=== PATIENT | male | born 1970 | race Hispanic/Latino ===

== ENCOUNTER 2017-08-13 07:22 | Emergency (ER) | payer SELFPAY ==
[2017-08-13] MEDS ORDERED: Ibuprofen 800 MG TAB ONE (08:25)
== END 2017-08-13 08:30 | disposition home or self-care (01) ==
LOC: ERS 07:22
DX: M54.6 Pain in thoracic spine (principal); S29.012A Strain of muscle and tendon of back wall of thorax, initial encounter; I25.2 Old myocardial infarction; E11.9 Type 2 diabetes mellitus without complications; I10 Essential (primary) hypertension; F41.9 Anxiety disorder, unspecified; F17.210 Nicotine dependence, cigarettes, uncomplicated; Z79.84 Long term (current) use of oral hypoglycemic drugs; Z79.82 Long term (current) use of aspirin; Z79.899 Other long term (current) drug therapy; X50.9XXA Other and unspecified overexertion or strenuous movements or postures, initial encounter
CPT/HCPCS: 36416; 93005

== ENCOUNTER 2017-08-24 14:58 | Emergency (ER) | payer SELFPAY ==
[2017-08-24] MEDS ORDERED: Ketorolac Tromethamine 30 MG/ML VIAL ONE (15:52)
--- NOTE | 2017-08-24 16:30 | RAD ---
3 VIEWS CERVICAL SPINE: Date: 08/24/17 COMPARISON: None. HISTORY: Neck pain for 2 weeks. FINDINGS: Three views of cervical spine show normal height and alignment of the vertebral bodies and interverte bral discs without fracture or subluxation. Small osteophytes are seen throughout the cervical spine. No prevertebral soft tissue swelling is seen. IMPRESSION: Mild degenerative changes of the cervical spine without acute osseous abnormality. POS: [facility]
== END 2017-08-24 17:04 | disposition home or self-care (01) ==
LOC: ERS 14:58
DX: L03.011 Cellulitis of right finger (principal); M54.2 Cervicalgia; I25.2 Old myocardial infarction; E11.9 Type 2 diabetes mellitus without complications; I10 Essential (primary) hypertension; F17.210 Nicotine dependence, cigarettes, uncomplicated; F41.9 Anxiety disorder, unspecified; Z79.899 Other long term (current) drug therapy
CPT/HCPCS: 72040; 96372; J1885

== ENCOUNTER 2019-11-22 | Inpatient (IN) | payer SELFPAY | END 2019-11-28 17:20 | disposition home or self-care (01) | DRG 854 | PROVIDERS: ADMIT Internal Medicine | PROC: 0J9C0ZZ Drainage of Pelvic Region Subcutaneous Tissue and Fascia, Open Approach (ICD-10-PCS; principal; 2019-11-23) | DX: A41.9 Sepsis, unspecified organism (principal); L02.214 Cutaneous abscess of groin; F41.9 Anxiety disorder, unspecified; I25.10 Atherosclerotic heart disease of native coronary artery without angina pectoris; F17.200 Nicotine dependence, unspecified, uncomplicated; I10 Essential (primary) hypertension; E11.9 Type 2 diabetes mellitus without complications; E66.9 Obesity, unspecified; I25.2 Old myocardial infarction; Z95.5 Presence of coronary angioplasty implant and graft; Z79.4 Long term (current) use of insulin ==

== ENCOUNTER 2024-08-25 17:09 | Emergency (ER) | payer SELFPAY ==
[~2024-08-25 17:09] MED LIST: Iopamidol-370 76% 500 ML MDV (1 ML CHARGE) ONE
[2024-08-25 19:43] LABS: #Basophils 0.06 10x3/uL (0.0-0.2); %Basophils 0.6 % (0.0-1.0); %Eosinophils 1.1 % (0.0-10.0); %Lymphocytes 33.8 % (21.0-51.0); %Monocytes 7.1 % (0.0-10.0); %Neutrophils 57.1 % (42.0-75.0); Hematocrit 41.7 % (42.0-52.0); Hemoglobin 14.3 g/dL (14.0-18.0); Mean Corpuscular HGB CONC 34.3 g/dL (32.0-36.0); Mean Corpuscular Hemoglobin 32.3 pg (27.0-31.0); Mean Corpuscular Volume 94.1 fL (78.0-98.0); Mean Platelet Volume 9.9 fL (7.4-10.4); Platelet Count 204 10x3/uL (130-400); RBC Distribution Width 13.8 % (11.5-14.5); Red Blood Cell (RBC) Count 4.43 mill/uL (4.70-6.10)
[2024-08-25] MEDS ORDERED: Sodium Chloride 0.9% 100 ML ONE (19:47)
[2024-08-25] MEDS ORDERED: Cefepime 2 GM VIAL ONE (19:47)
[2024-08-25] MEDS ORDERED: Ketorolac Tromethamine 30 MG (1 mL) VIAL ONE (19:47)
[2024-08-25 20:00] LABS: ALT (SGPT) 17 U/L (Less than 45); AST (SGOT) 21 U/L (11-34); Albumin 3.9 g/dL (3.1-4.5); Alkaline Phosphatase 62 U/L (40-110); Anion Gap 15 mmol/L (10-20); BUN (Urea Nitrogen) 13 mg/dL (8.4-25.7); Bilirubin, Total 0.3 mg/dL (0.3-1.2); Calc. Creatinine Clearance 0 mL/min (70-130); Calcium 9.5 mg/dL (7.8-10.44); Carbon Dioxide 21 mmol/L (22-29); Chloride 107 mmol/L (98-107); Estimated GFR 112; Globulin 3.5 g/dL (2.4-3.5); Glucose 94 mg/dL (70-105); Potassium 4.1 mmol/L (3.5-5.1); Protein, Total 7.4 g/dL (6.0-8.3); Sodium 139 mmol/L (136-145)
== END 2024-08-25 21:01 | disposition home or self-care (01) ==
LOC: ERS 17:09
DX: L02.31 Cutaneous abscess of buttock (principal); I10 Essential (primary) hypertension; E11.9 Type 2 diabetes mellitus without complications; F17.210 Nicotine dependence, cigarettes, uncomplicated
CPT/HCPCS: 72193; 80053; 83605; 85025; 96365; 96375; J0692; J1885